=== PATIENT | female | born 1965 | race Caucasian/White ===

== ENCOUNTER 2022-11-07 12:36 | Outpatient (CLI) | payer OTHER, SELFPAY | END 2022-11-07 12:37 | disposition home or self-care (01) | LOC: NFLDREF 11-08 21:47 | PROVIDERS: PCP Nurse Practitioner Family; Referring Provider Nurse Practitioner Family; Visit Provider Nurse Practitioner Family | DX: N95.0 Postmenopausal bleeding (principal); R14.0 Abdominal distension (gaseous); N93.9 Abnormal uterine and vaginal bleeding, unspecified | CPT/HCPCS: 87086 ==

== ENCOUNTER 2022-11-14 10:43 | Outpatient (CLI) | payer OTHER, SELFPAY ==
--- NOTE | 2022-11-14 11:00 | CRLHL7_ITS ---
For Patients: As a result of the Century Cures Act, medical imaging exams and procedure reports are released immediately into your electronic medical record. You may view this report before your referring provider. If you have questions, please contact your health care provider. INDICATION: POSTMENOPAUSAL BLEEDING COMPARISON: 08/13/2018 TECHNIQUE: 2D barba scale and color Doppler images were acquired of the pelvis using a transabdominal and transvaginal approach. FINDINGS: Sonographic images demonstrate a normal size and smooth outer contour of the uterus. Uterus measures 8.5 cm in length by 4.7 cm in AP diameter by 5 point cm in transverse dimension. Mid fundal intramural fibroid measuring 1.9 x 1.6 x 1.8 cm is present. The endometrial lining measures 3 mm in composite thickness. The ovaries are not visualized. There are no suspicious fluid collections within the cul-de-sac. IMPRESSION: Endometrial thickness 3 millimeters. Dictated by Wilner Frey MD @ 11/14/2022 11:33:24 AM (Electronically Signed)
== END 2022-11-14 10:44 | disposition home or self-care (01) ==
LOC: US 10:43
PROVIDERS: PCP Nurse Practitioner Family; Visit Provider Nurse Practitioner Family
DX: N95.0 Postmenopausal bleeding (principal); R93.89 Abnormal findings on diagnostic imaging of other specified body structures
CPT/HCPCS: 76830; 76856

== ENCOUNTER 2022-11-16 09:46 | Outpatient (CLI) | payer OTHER, SELFPAY | END 2022-11-16 09:47 | disposition home or self-care (01) | PROVIDERS: PCP Nurse Practitioner Family; Visit Provider Registered Nurse | DX: N95.0 Postmenopausal bleeding (principal); E66.9 Obesity, unspecified; D50.9 Iron deficiency anemia, unspecified | CPT/HCPCS: 83001; 84443 ==

== ENCOUNTER 2023-11-30 15:37 | Outpatient (CLI) | payer OTHER, SELFPAY | END 2023-11-30 15:38 | disposition home or self-care (01) | PROVIDERS: PCP Nurse Practitioner Family; Visit Provider Nurse Practitioner Family | DX: I10 Essential (primary) hypertension (principal); D50.9 Iron deficiency anemia, unspecified; E66.9 Obesity, unspecified; R53.83 Other fatigue; Z13.6 Encounter for screening for cardiovascular disorders | CPT/HCPCS: 80053; 80061; 82728 ==

== ENCOUNTER 2024-01-16 19:42 | Outpatient (CLI) | payer OTHER, SELFPAY ==
--- NOTE | 2024-01-23 12:02 | W.PM.SLEEP ---
Sleep Study Details Details Interpreting Provider: Ashly Date of Sleep Study: 01/16/24 Sleep Study Details: STUDY TYPE:? Home unattended ? BMI:? 41.2 ORDERING PROVIDER:? Ashly INDICATION:? Concern about sleep apnea ? SLEEP SUMMARY:? Monitor time 491.7 minutes RESPIRATORY SUMMARY:? AHI 64.4 Low oxygen 80 13% of study oxygen less than 90 Snoring 91.4% PERIODIC LIMB MOVEMENTS OF SLEEP:? Not record CARDIAC:? Range 65-122, mean 82.8 IMPRESSION:? Severe obstructive sleep apnea with significant hypo oxygenation. RECOMMENDATION: Treatment options include AutoSet CPAP versus in-lab titration.
== END 2024-01-16 19:43 | disposition home or self-care (01) ==
PROVIDERS: PCP Nurse Practitioner Family; Visit Provider Otolaryngology
DX: G47.33 Obstructive sleep apnea (adult) (pediatric) (principal)
CPT/HCPCS: 95806

== ENCOUNTER 2024-03-14 15:32 | Outpatient (CLI) | payer OTHER, SELFPAY ==
--- NOTE | 2024-03-14 15:40 | CRLHL7_ITS ---
For Patients: As a result of the Century Cures Act, medical imaging exams and procedure reports are released immediately into your electronic medical record. You may view this report before your referring provider. If you have questions, please contact your health care provider. BILATERAL SCREENING MAMMOGRAM WITH COMPUTER-AIDED DETECTION AND TOMOSYNTHESIS TECHNIQUE: CC and MLO views were obtained. These mammographic images have been obtained using full-field digital technique. These mammographic images were interpreted with the benefit of computer-aided detection. Breast Tomosynthesis was used in this interpretation. COMPARISON FILM: 02/12/21, 08/13/18, 07/10/17. FINDINGS: There are scattered areas of fibroglandular density IMPRESSION: There is no radiographic evidence for malignancy. ASSESSMENT: BI-RADS Category 1: Negative RECOMMENDATION: Routine screening mammogram in 1 year. A lay language report of this examination will be provided to the patient. Wilner Frey M.D. Diagnostic Radiologist [email or web address] JUSTICE/Dictated by: Wilner Frey MD @ 03/15/2024 10:35:00 AM (Electronically Signed)
== END 2024-03-14 15:33 | disposition home or self-care (01) ==
LOC: MAMMO 15:32
PROVIDERS: PCP Nurse Practitioner Family; Visit Provider Nurse Practitioner Family
DX: Z12.31 Encounter for screening mammogram for malignant neoplasm of breast (principal)
CPT/HCPCS: 77063; 77067

== ENCOUNTER 2024-10-24 09:18 | Outpatient (CLI) | payer OTHER, SELFPAY | END 2024-10-24 09:19 | disposition home or self-care (01) | LOC: FRMREF 09:19 | PROVIDERS: PCP Nurse Practitioner Family; Visit Provider Nurse Practitioner Family | DX: I10 Essential (primary) hypertension (principal) | CPT/HCPCS: 80053 ==